=== PATIENT | male | born 1960 | race Two or more races ===

== ENCOUNTER 2017-03-27 07:34 | Inpatient (IN) | payer BC ==
[~2017-03-27] VITALS: Ht 170.2 cm; Wt 63.5 kg
[2017-03-27] MEDS ORDERED: KETOROLAC TROMETHAMINE INJ 30 MG/ML VIAL ONE (07:55)
[2017-03-27] MEDS ORDERED: IV NS 0.9% 1,000 ML ONE (07:55)
[2017-03-27] MEDS ORDERED: ONDANSETRON HCL/PF 4 MG/2 ML VIAL ONE (07:55)
[2017-03-27] MEDS ORDERED: IV SET PRIMARY 1 EA INFUS.SET MC ONE (07:55)
[2017-03-27] MEDS ORDERED: IV NS 0.9% 1,000 ML BAG IV ONE (08:00)
[2017-03-27] MEDS ORDERED: ONDANSETRON HCL/PF - ER 4 MG/2 ML VIAL IV ONE (08:00)
[2017-03-27] MEDS ORDERED: KETOROLAC TROMETHAMINE INJ 30 MG/ML VIAL IV ONE (08:00)
[2017-03-27 08:04] LABS: BASOPHILS % (AUTO) 0.2 % (0.0-2.0); EOSINOPHILS # (AUTO) 0.1 /CMM (0.0-0.7); HEMATOCRIT 42 % (39-51); HEMOGLOBIN 13.8 g/dL (13.5-17.5); LYMPHOCYTES # (AUTO) 1.5 /CMM (0.8-4.8); LYMPHOCYTES % (AUTO) 12.3 % (20.0-44.0); MEAN CORPUSCULAR HEMOGLOBIN 28 PG (26.0-33.0); MEAN CORPUSCULAR HGB CONC 33 g/dl (31.0-36.0); MEAN CORPUSCULAR VOLUME 86 fL (80-96); MONOCYTES # (AUTO) 0.5 /CMM (0.1-1.30); MONOCYTES % (AUTO) 4.4 % (2.0-12.0); NEUTROPHILS % (AUTO) 82.1 % (43.0-81.0); PLATELET COUNT (AUTO) 268 /CMM (150-450); RED BLOOD CELL COUNT(AUTO) 4.87 MIL/uL (4.5-6.0); WHITE BLOOD COUNT (AUTO) 12.2 K/uL (4.3-11.0)
[2017-03-27 08:13] LABS: CALCIUM, SERUM 8.8 mg/dL (8.5-10.1); CREATININE 1.3 mg/dL (0.6-1.3)
[2017-03-27 08:23] LABS: BILIRUBIN,TOTAL 0.4 mg/dL (0.2-1.0); TOTAL PROTEIN, SERUM 8.8 g/dL (6.4-8.2)
[2017-03-27 08:49] LABS: APPEARANCE,URINE CLEAR (CLEAR); BILIRUBIN,URINE NEGATIVE (NEGATIVE); BLOOD, URINE 3+ Ery/uL (NEGATIVE); COLOR,URINE DARK YELLO (YELLOW); KETONES,URINE NEGATIVE (NEGATIVE); LEUKOCYTE ESTERASE ,URINE NEGATIVE (NEGATIVE); NITRITE, URINE POSITIVE (NEGATIVE); PROTEIN,URINE 2+ mg/dl (NEGATIVE); UGLUCOSE NEGATIVE (NEGATIVE)
[2017-03-27 09:02] LABS: BACTERIA,URINE Few /HPF (None Seen); SQUAMOUS EPITHELIAL CELL,UR Few /HPF (None Seen)
[2017-03-27] MEDS ORDERED: METRONIDAZOLE 500MG/ NS 100ML 500 MG in PREMIX 1 EA IV SCH (10:00)
[2017-03-27] MEDS ORDERED: CIPROFLOXACIN IV RTU 400 MG in PREMIX 1 EA IV SCH (10:00)
[2017-03-27] MEDS ORDERED: CIPROFLOXACIN IV RTU 200 ML IV ONE (10:01)
[2017-03-27] MEDS ORDERED: METRONIDAZOLE 500MG/ NS 100ML 100 ML IV ONE (10:01)
[2017-03-27] MEDS ORDERED: IV SET PRIMARY PUMP SET 1 EA INFUS.SET MC ONE ×2 (10:01→12:30)
[2017-03-27] MEDS ORDERED: IV NS 0.9% 1,000 ML IV PRN (10:24)
[2017-03-27] MEDS ORDERED: ZOLPIDEM TARTRATE 5 MG TABLET PO PRN (10:30)
[2017-03-27] MEDS ORDERED: Z GUARD REMEDY 2 OZ OINT TP PRN (10:30)
[2017-03-27] MEDS ORDERED: ACETAMINOPHEN 325 MG TABLET PO PRN (10:30)
[2017-03-27] MEDS ORDERED: MAG HYDROX/AL HYDROX/SIMETH 30 ML UDC PO PRN (10:30)
[2017-03-27] MEDS ORDERED: MAGNESIUM HYDROXIDE 30 ML UDC PO PRN (10:30)
[2017-03-27 11:15] VITALS: BP 143/76
[2017-03-27] MEDS ORDERED: CIPROFLOXACIN IV RTU 200 MG in PREMIX 1 EA IV SCH (12:00)
[2017-03-27] MEDS: HYDROCODONE/APAP 5/325MG 1 EACH TABLET PO PRN ×4 (12:36→22:16)
[2017-03-27] MEDS: MORPHINE SULFATE INJ 2 MG/ML DISP.SYRIN IV PRN ×3 (13:53→22:17)
[2017-03-27] MEDS: ONDANSETRON HCL/PF 4 MG/2 ML VIAL IVP PRN (15:22)
[2017-03-27 16:00] VITALS: BP 134/80
[2017-03-27] MEDS ORDERED: SECONDARY IV SET 1 EA INFUS.SET MC ONE ×2 (17:00→21:14)
[2017-03-27] MEDS: METRONIDAZOLE 500MG/ NS 100ML 500 MG in PREMIX 1 EA IV SCH ×2 (17:06→23:54)
[2017-03-27] MEDS: CIPROFLOXACIN IV RTU 200 MG in PREMIX 1 EA IV SCH (21:17)
[2017-03-27 22:00] VITALS: BP 136/81
[2017-03-28] MEDS: ONDANSETRON HCL/PF 4 MG/2 ML VIAL IVP PRN ×2 (02:32→09:05)
[2017-03-28] MEDS: METRONIDAZOLE 500MG/ NS 100ML 500 MG in PREMIX 1 EA IV SCH ×4 (05:58→23:02)
[2017-03-28] MEDS: MORPHINE SULFATE INJ 2 MG/ML DISP.SYRIN IV PRN (06:29)
[2017-03-28 06:56] LABS: BASOPHILS % (AUTO) 0.3 % (0.0-2.0); HEMATOCRIT 37 % (39-51); HEMOGLOBIN 12.6 g/dL (13.5-17.5); LYMPHOCYTES # (AUTO) 1.2 /CMM (0.8-4.8); LYMPHOCYTES % (AUTO) 10.9 % (20.0-44.0); MEAN CORPUSCULAR HEMOGLOBIN 29 PG (26.0-33.0); MEAN CORPUSCULAR HGB CONC 34 g/dl (31.0-36.0); MEAN CORPUSCULAR VOLUME 86 fL (80-96); MONOCYTES # (AUTO) 0.9 /CMM (0.1-1.30); MONOCYTES % (AUTO) 8.2 % (2.0-12.0); NEUTROPHILS # (AUTO) 8.9 /CMM (1.8-8.9); NEUTROPHILS % (AUTO) 80.6 % (43.0-81.0); PLATELET COUNT (AUTO) 228 /CMM (150-450); RDW COEFFICIENT OF VARIATION 13.5 (11.5-15.0); RED BLOOD CELL COUNT(AUTO) 4.34 MIL/uL (4.5-6.0); WHITE BLOOD COUNT (AUTO) 11.1 K/uL (4.3-11.0)
[2017-03-28 07:05] LABS: INR 0.98 (0.87-1.13); PROTHROMBIN TIME 10.5 SECS (9.5-12.7)
[2017-03-28 07:18] LABS: MAGNESIUM 1.8 mg/dL (1.8-2.4); PHOSPHORUS 3.5 mg/dL (2.5-4.9)
[2017-03-28 07:44] VITALS: BP 117/77
[2017-03-28 08:00] VITALS: BP_SYST 117; BP_SYST 134; BP_DIAS 61; BP_DIAS 77
[2017-03-28] MEDS: PANTOPRAZOLE 40 MG TABLET.DR PO SCH (09:05)
[2017-03-28] MEDS ORDERED: SECONDARY IV SET 1 EA INFUS.SET MC ONE (09:50)
[2017-03-28] MEDS: CIPROFLOXACIN IV RTU 200 MG in PREMIX 1 EA IV SCH ×2 (09:52→21:29)
[2017-03-28 16:00] VITALS: BP 111/70
[2017-03-28 16:06] VITALS: BP 111/70
[2017-03-28 20:00] VITALS: BP 117/61
[2017-03-28 23:13] VITALS: BP 117/61
[2017-03-29] MEDS: METRONIDAZOLE 500MG/ NS 100ML 500 MG in PREMIX 1 EA IV SCH ×2 (05:51→12:28)
[2017-03-29 08:00] VITALS: BP 122/77
[2017-03-29] MEDS: PANTOPRAZOLE 40 MG TABLET.DR PO SCH (08:15)
[2017-03-29] MEDS: CIPROFLOXACIN IV RTU 200 MG in PREMIX 1 EA IV SCH (10:27)
[2017-03-29] MEDS ORDERED: METR500T PO (10:39)
[2017-03-29] MEDS ORDERED: LEVO500T15 PO (10:39)
== END 2017-03-29 14:10 | disposition home or self-care (01) | DRG 690 ==
LOC: ER 07:36 → MEDSG2 11:03
PROVIDERS: ADMIT Internal Medicine; ATTEND Internal Medicine
DX: N13.6 Pyonephrosis (principal); K57.32 Diverticulitis of large intestine without perforation or abscess without bleeding; D72.829 Elevated white blood cell count, unspecified; N39.0 Urinary tract infection, site not specified
CPT/HCPCS: 36415; 71020-TC; 80053-TC; 80061-TC; 81000-TC; 83735-TC; 84100-TC; 85025-TC; 85652-TC; 85730-TC; 87040-TC; 87081-TC; 87086-TC; A4216; A4606; J0744; J1885; J2270; J2405; J3490; J7030; Z7610